=== PATIENT | female | born 1980 ===

== ENCOUNTER 2016-12-22 10:38 | Emergency (ER) | payer OTHER ==
[2016-12-22 11:08] VITALS: BMI 25.1
[2016-12-22 11:18] VITALS: BP 107/70; PULSE 58; RESP 18; TEMP 99.3; O2SAT 99
[2016-12-22 11:44] LABS: RBC URINE 6 /hpf (0-3); URINE BACTERIA MOD (<OCC); URINE BILIRUBIN NEGATIVE (NEGATIVE); URINE BLOOD 3+ (NEGATIVE); URINE COLOR Amber (YELLOW); URINE GLUCOSE (UA) NORMAL (Normal); URINE KETONE NEGATIVE (NEGATIVE); URINE LEUKOCYTE ESTERASE 3+ Leu/uL (Negative); URINE PROTEIN NEGATIVE (NEGATIVE); WBC URINE 16 /hpf (0-5)
--- NOTE | 2016-12-22 12:18 | C.PDOC ---
History Of Present Illness 36 yo female w/o significant PMHx come in for evaluation of pain on urination, urinary frequency gradually developed for past few days and associated with suprapubic pain. Pt admits, noted some blood in urine this AM. Otherwise, pt denies high fever, chills, abd. pain, N/V, vaginal irritation or discharges. Ambulate to ED for evaluation, not in any apparent distress. Time Seen by Provider: 12/22/16 11:19 Chief Complaint (Nursing): Female Genitourinary History Per: Patient History/Exam Limitations: no limitations Onset/Duration Of Symptoms: Hrs (this morning) Current Symptoms Are (Timing): Still Present Severity: Mild Pain Scale Rating Of: 3 Quality Of Discomfort: "Pain" Associated Symptoms: Urinary Symptoms Alleviating Factors: None Recent travel outside of the [place]: No Abnormal Vaginal Bleeding: No Past Medical History Reviewed: Historical Data, Nursing Documentation, Vital Signs Vital Signs: Last Vital Signs Temp 99.3 F 12/22/16 11:08 Pulse 58 L 12/22/16 11:08 Resp 18 12/22/16 11:08 BP 107/70 12/22/16 11:08 Pulse Ox 99 12/22/16 15:49 Family History: States: Unknown Family Hx - Social History Hx Alcohol Use: No Hx Substance Use: No - Immunization History Hx Tetanus Toxoid Vaccination: No Hx Influenza Vaccination: No Hx Pneumococcal Vaccination: No Review Of Systems Except As Marked, All Systems Reviewed And Found Negative. Constitutional: Negative for: Fever, Chills ENT: Negative for: Throat Pain Gastrointestinal: Negative for: Nausea, Vomiting, Abdominal Pain Genitourinary: Positive for: Frequency, Hematuria. Negative for: Vaginal Discharge, Vaginal Bleeding Musculoskeletal: Negative for: Back Pain Skin: Negative for: Rash Neurological: Negative for: Weakness, Numbness, Headache, Dizziness Physical Exam - Physical Exam Appears: Well, Non-toxic, No Acute Distress Skin: Normal Color, Warm, Dry, No Rash Eye(s): bilateral: PERRL Nose: Normal, No Discharge Oral Mucosa: Moist, No Drooling Throat: Normal, No Erythema, No Exudate, No Drooling Neck: Supple Gastrointestinal/Abdominal: Soft, Tenderness (mild suprapubic tenderness), No Distention, No Guarding Back: No CVA Tenderness Extremity: No Pedal Edema, No Swelling Neurological/Psych: Oriented x3, Normal Speech ED Course And Treatment O2 Sat by Pulse Oximetry: 99 (room air) Pulse Ox Interpretation: Normal Progress Note: On re-evaluation, pt is afebrile, hemodynamicaly stable. Non- toxic. Tolerate Po well in ED. PulsEOx 99% RA. ENT: no acute finidngs. Abd: benign. back: (-) CVA tenderness. UA results review (+) nitrates. Preg (-). Pt advised on course of ds. ref. to f/u with PMD and [employer] ANALYST in 2-3 days for re- eavl. return if any new changes. Disposition Counseled Patient/Family Regarding: Diagnosis, Need For Followup, Rx Given - Disposition Referrals: [facility] [Outside] Disposition: HOME/ ROUTINE Disposition Time: 12:05 Condition: STABLE Additional Instructions: TAKE MEDICATION PRESCRIBED ENCOURAGE FLUIDS CRANBERRY SUPPLEMENT FOLLOW UP WITH PMD IN 2-3 DAYS FOR RE-EVALUATION. RETURN TO ED IF ANY WORSENING OR NEW CHANGES. Prescriptions: Ciprofloxacin [Cipro] 1 tab PO BID #20 tab Cranberry 500 mg PO BID #20 capsule Instructions: Urinary Tract Infection in Women (ED) Print Language: VIET[place]ESE - Clinical Impression Clinical Impression: UTI (urinary tract infection) - Scribe Statement The provider has reviewed the documentation as recorded by the Scribe Izabel Michael All medical record entries made by the Scribe were at my direction and personally dictated by me. I have reviewed the chart and agree that the record accurately reflects my personal performance of the history, physical exam, medical decision making, and the department course for this patient. I have also personally directed, reviewed, and agree with the discharge instructions and disposition.
== END 2016-12-22 12:31 | disposition home or self-care (01) ==
LOC: C.ER 10:38
DX: N39.0 Urinary tract infection, site not specified (principal)

== ENCOUNTER 2017-02-02 15:42 | Emergency (ER) | payer OTHER ==
[2017-02-02 15:42] VITALS: BMI 25.1
[2017-02-02 15:59] VITALS: RESP 18; TEMP 98.7
[2017-02-02] MEDS ORDERED: Sodium Chloride 0.9% 1,000 ML IV ONE (16:26)
[2017-02-02] MEDS ORDERED: DiphenhydrAMINE 50 mg/ml Inj IVP STA (16:26)
--- NOTE | 2017-02-02 16:50 | C.PDOC ---
History Of Present Illness 36 yr old female presents to the ER with worsening headache for the past 1 week. Patient is accompanied by family member who is also complaining of headache. Patient denies fever, vision changes, chest pain, SOB, nausea, vomiting, weakness or numbness. Time Seen by Provider: 02/02/17 16:20 Chief Complaint (Nursing): Headache History Per: Patient History/Exam Limitations: no limitations Onset/Duration Of Symptoms: Persistent (1 week ) Past Medical History Reviewed: Historical Data, Nursing Documentation, Vital Signs Vital Signs: Last Vital Signs Temp 98.7 F 02/02/17 15:56 Pulse 57 L 02/02/17 15:56 Resp 18 02/02/17 15:56 BP 97/59 L 02/02/17 15:56 Pulse Ox 100 02/02/17 16:54 Family History: States: No Known Family Hx - Social History Hx Alcohol Use: No Hx Substance Use: No - Immunization History Hx Tetanus Toxoid Vaccination: No Hx Influenza Vaccination: No Hx Pneumococcal Vaccination: No Review Of Systems Except As Marked, All Systems Reviewed And Found Negative. Constitutional: Negative for: Fever Eyes: Negative for: Vision Change Cardiovascular: Negative for: Chest Pain Respiratory: Negative for: Shortness of Breath Gastrointestinal: Negative for: Nausea, Vomiting Neurological: Positive for: Headache. Negative for: Weakness, Numbness Physical Exam - Physical Exam Appears: Well, Non-toxic, No Acute Distress Skin: Normal Color, Warm, Dry, No Rash Head: Atraumatic, Normacephalic Eye(s): bilateral: Normal Inspection, PERRL, EOMI Oral Mucosa: Moist Throat: Normal, No Erythema, No Exudate, No Drooling Chest: Symmetrical, No Tenderness Cardiovascular: Rhythm Regular, No Murmur Respiratory: Normal Breath Sounds, No Rales, No Rhonchi, No Stridor, No Wheezing Extremity: Normal ROM, No Swelling Neurological/Psych: Oriented x3, Normal Speech, Normal Motor ED Course And Treatment - Laboratory Results Result Diagrams: 02/02/17 16:55 02/02/17 16:55 O2 Sat by Pulse Oximetry: 100 (RA ) Pulse Ox Interpretation: Normal Medical Decision Making Medical Decision Making: PLAN: * Carboxyhemoglobin * VBG * CBC * CMP * HCG * Urinalysis * Benadryl IVP * Reglan IVP * Sodium Chloride IV * check co level as pt with family member c/o of reis. labs urnemarkable. no thunderclap features. pt states symptoms improved. advise outptf/u return precautions Disposition - Disposition Referrals: Arden Pan MD [Staff Provider] - Disposition: HOME/ ROUTINE Disposition Time: 17:46 Condition: STABLE Additional Instructions: please follow up with your doctor. return to er with worsening symptom or concerns. Prescriptions: Acetaminophen/Butalbital/Caf [Fioricet] 1 tab PO Q8 PRN #10 tab PRN Reason: Headache Instructions: Acute Headache (ED) Forms: [employer] (Urdu) Print Language: [place]IZ[place] - Clinical Impression Clinical Impression: Headache - Scribe Statement The provider has reviewed the documentation as recorded by the Camila Hess Provider Attestation: All medical record entries made by the Joannibjeff were at my direction and personally dictated by me. I have reviewed the chart and agree that the record accurately reflects my personal performance of the history, physical exam, medical decision making, and the department course for this patient. I have also personally directed, reviewed, and agree with the discharge instructions and disposition.
[2017-02-02 16:59] LABS: BASO % 0.6 % (0.0-2.0); EOS # 0.3 K/uL (0.0-0.7); EOS % 4.1 % (0.0-4.0); HEMATOCRIT 40.2 % (34.0-47.0); LYMPH # 2.3 K/uL (1.0-4.3); LYMPH % 30.5 % (20.0-40.0); MEAN CELL VOLUME 91.3 fL (81.0-99.0); MEAN CORPUSCULAR HEMOGLOBIN 30.7 pg (27.0-31.0); MEAN CORPUSCULAR HGB CONC 33.6 g/dL (33.0-37.0); MEAN PLATELET VOLUME 7.9 fL (7.2-11.7); MONO # 0.5 K/uL (0.0-0.8); MONO % 6.8 % (0.0-10.0); RED CELL DISTRIBUTION WIDTH 13.4 % (11.5-14.5); WHITE BLOOD COUNT 7.7 K/uL (4.8-10.8)
[2017-02-02 17:07] LABS: RBC URINE 8 /hpf (0-3); URINE BILIRUBIN NEGATIVE (NEGATIVE); URINE BLOOD 2+ (NEGATIVE); URINE COLOR Yellow (YELLOW); URINE GLUCOSE (UA) NORMAL (Normal); URINE KETONE NEGATIVE (NEGATIVE); URINE LEUKOCYTE ESTERASE NEG Leu/uL (Negative); URINE PROTEIN NEGATIVE (NEGATIVE); URINE UROBILINOGEN NORMAL mg/dL (0.2-1.0); WBC URINE 1 /hpf (0-5)
[2017-02-02 17:08] LABS: INR 1.1
[2017-02-02 17:16] LABS: CHLORIDE 100 mmol/L (98-107); POTASSIUM 4.3 mmol/L (3.6-5.2); SODIUM 139 mmol/L (132-148)
[2017-02-02 17:18] LABS: AST/SGOT 27 U/L (14-36); BILIRUBIN,TOTAL 0.5 mg/dL (0.2-1.3); CARBON DIOXIDE 25 mmol/L (22-30); GFR AFRICAN-AMERICAN > 60
[2017-02-02 17:19] LABS: ALB/GLOB RATIO 1.3 (1.0-2.1); ALKALINE PHOSPHATASE 33 U/L (38-126); ALT/SGPT 34 U/L (9-52); BLOOD UREA NITROGEN 8 mg/dL (7-17); CALCIUM 8.7 mg/dl (8.6-10.4); GLUCOSE,RANDOM 89 mg/dL (65-105)
[2017-02-02 17:23] LABS: BLOOD GAS HEMOGLOBIN 11.6 g/dL (11.7-17.4); CARBOXYHEMOGLOBIN 1.3 % (0.5-1.5); DRAW SITE VENOUS; HHB 51.1 % (0.0-5.0); METHEMOGLOBIN 2.2 % (0.0-3.0); VENOUS BLOOD GAS BASE EXCESS -0.1 mmol/L (0.0-2.0); VENOUS BLOOD GAS PCO2 47 mmHg (40-60); VENOUS BLOOD HGB O2 SAT 45.4 % (95.0-98.0); VENOUS BLOOD PH 7.35 (7.32-7.43)
[2017-02-02 18:12] VITALS: BP 96/69; PULSE 56; O2SAT 98
== END 2017-02-02 18:05 | disposition home or self-care (01) ==
LOC: C.ER 15:42
DX: R51 Headache (principal)
CPT/HCPCS: 80053; 81001; 82803; 84703; 85025; 85610; 85730; 96361; 96374; 96375; 99284; J1200; J2765; J7040